=== PATIENT | female | born 1965 | race Caucasian/White ===

== ENCOUNTER → 2020-06-27 | Outpatient (CLI) | payer OTHER, SELFPAY ==
[2017-08-08 11:27] VITALS: BMI 29.1
--- NOTE | 2020-06-27 | CYST_PTH ---
PATIENT: FATIMAH APARICIO LOC: [facility] U#:[id number] AGE/SX: 55/F ROOM: RE06/27/[address]: Dr. Carlos Manuel Grayson DDS : 1965 BED: DIS: 06/27/2020 SPEC #: [id number] RECD: 06/27/20 09:49 STATUS: MAYDA NENA #: [id number] RICKIE: 06/27/20 00:[address]: Carlos Manuel Grayson DEPT: SURGICAL PATHOLOGY RECD BY: Carolina Colin ENTERED: 06/27/20 12:04 SP TYPE: Cyst OTHR DR: Dr. Justine Jimenez MD Tissues: CYST Procedures: Surgery Specimen Level III HEADER OPERATION: Right mandible biopsy PRE-OP DIAGNOSIS: Cyst around deeply impacted tooth; Odontogenic cyst TISSUE SUBMITTED: Cystic tissue around tooth MICROSCOPIC DIAGNOSIS Cystic tissue around tooth, biopsy: Consistent with benign inflamed odontogenic cyst. See comment. JOSE LUIS:[email or web address] 06/28/20 COMMENT Correlation with clinical, radiologic findings and appropriate follow up are necessary. Case has been reviewed in consultation with Dr. Sheldon who concurs with the above diagnosis. IDC:AM MICROSCOPIC DESCRIPTION Slides are reviewed. GROSS DESCRIPTION Received is one container labeled with the patient's name and not further designated. The specimen consists of a piece of thompson mucosal tissue measuring 2 x 0.7 x 0.2 cm. The entire specimen is submitted in one cassette. / JOSE LUIS:janusz 06/27/20 TC:5 CPT: 19502
== END | disposition home or self-care (01) ==
LOC: LABSPEC 10:35
PROVIDERS: PCP Internal Medicine; Referring Provider Dentist Oral and Maxillofacial Surgery; Visit Provider Dentist Oral and Maxillofacial Surgery
DX: K09.8 Other cysts of oral region, not elsewhere classified (principal)
CPT/HCPCS: 88304